=== PATIENT | female | born 1990 | race Caucasian/White ===

== ENCOUNTER 2020-08-10 10:07 | Emergency (ER) | payer MEDICARE ==
[~2020-08-10] VITALS: Ht 152.4 cm; Wt 59.0 kg
[2020-08-10] MEDS ORDERED: FAMOTIDINE20 M1 PO (10:57)
[2020-08-10] MEDS ORDERED: ONDANSETRON4 MG PO (10:58)
[2020-08-10] MEDS ORDERED: SERTRALINE50 MG PO (10:58)
[2020-08-10] MEDS ORDERED: PHOSLO667 M1 PO (10:59)
[2020-08-10] MEDS ORDERED: ROPINIROLE0.5 MG PO (10:59)
[2020-08-10] MEDS ORDERED: RENVELA800 MG PO (11:00)
[2020-08-10] MEDS ORDERED: CLOPIDOGREL75 MG PO (11:00)
[2020-08-10] MEDS ORDERED: AMITRIPTYLIN50 MG PO (11:01)
[2020-08-10 11:02] LABS: HEMATOCRIT 29.3 % (37.0-47.0); HEMOGLOBIN 9.4 g/dl (12.0-16.0); IMMATURE GRANULOCYTES 0.5 % (0.0-5.0); MEAN CELL VOLUME 106.9 fL CALC (80.0-100.0); MEAN CORPUSCULAR HGB 34.3 pG CALC (26.0-32.0); MEAN CORPUSCULAR HGB CONC 32.1 g/dL CAL (32.0-36.0); NEUT# 5.15 thou/uL (2.00-7.15); RED BLOOD COUNT 2.74 mill/uL (4.20-5.60); RED CELL DISTRI WIDTH 13.7 % (11.5-15.5)
[2020-08-10] MEDS ORDERED: SUMATRIPTAN25 MG PO (11:02)
[2020-08-10] MEDS ORDERED: TIZANIDINE HCL4 M1 PO (11:02)
[2020-08-10] MEDS ORDERED: LABETALOL HYDR100 MG PO (11:03)
[2020-08-10] MEDS ORDERED: LEVETIRACETAM500 M1 PO (11:03)
[2020-08-10 11:19] LABS: ALBUMIN 4.5 g/dL (3.2-5.0); BILIRUBIN, TOTAL 1.3 mg/dL (0.0-1.4); TOTAL PROTEIN 8.3 g/dL (6.3-8.2)
[2020-08-10 11:28] LABS: CREATININE 6.1 mg/dL (0.5-1.0)
[2020-08-10 14:49] VITALS: BP 122/68
== END 2020-08-10 14:49 | disposition home or self-care (01) ==
LOC: ED 10:07
PROVIDERS: Family Medicine
DX: R10.11 Right upper quadrant pain (principal); I12.0 Hypertensive chronic kidney disease with stage 5 chronic kidney disease or end stage renal disease; E11.22 Type 2 diabetes mellitus with diabetic chronic kidney disease; N18.6 End stage renal disease; Z99.2 Dependence on renal dialysis; Z94.0 Kidney transplant status